=== PATIENT | male | born 1930 | race Caucasian/White ===

== ENCOUNTER → 2017-01-20 | Outpatient (CLI) | payer MEDICARE, OTHER ==
[~2017-01-20] MED LIST: ASPIRIN LO-DOSE81 MG PO; CEFTIN250 MG PO; CIPRO500 MG PO; CITRACAL+D(315M1 TAB PO; COENZYME Q10100 MG PO; COUMADIN 4MG **4 MG PO; DELTASONE5 MG PO; EXELON PATCH 99.5 MG TRANS; FLOMAX0.4 MG PO; IMDUR30 MG PO; LOPRESSOR25 MG PO; MYCOSTATIN OINT30 GM TOP; NIACIN500 M3 PO; OMEGA 3-6-9 11200 MG PO; OMNICEF 300MG300 MG PO; PRAVACHOL20 MG PO; PROAIR RESPICL90 MCG INH; PROTONIX40 MG PO; SINGULAIR10 MG PO; SYMBICORT 16010.2 GM INH; THERAGRAN-M1 TAB PO; VENTOLIN HFA8 GM INH; VITAMIN A10000 UNIT PO; VITAMIN B COMP1 EACH PO; VITAMIN B-121000 MCG PO; VITAMIN C1000 MG PO; VITAMIN D1000 UNIT PO; VITAMIN E400 UNI2 PO; Z-PAK250 MG
== END ==
LOC: LGSMG 14:41
DX: R19.7 Diarrhea, unspecified (principal)